=== PATIENT | female | born 1960 | race Caucasian/White ===

== ENCOUNTER 2022-06-01 11:58 | Emergency (ER) | payer SELFPAY ==
[~2022-06-01] VITALS: Ht 172.7 cm; Wt 63.5 kg
--- NOTE | 2022-06-01 11:59 | NUR ---
CAME IN FOR L HAND PAIN x 2 WEEKS. L HAND WITH CAST, GOOD CAP REFILL.
--- NOTE | 2022-06-01 13:31 | NUR ---
Patient discharged to home in stable condition. Written and verbal after care instructions given. Patient verbalizes understanding of instruction.
[2022-06-01 13:34] VITALS: BP 148/92
== END 2022-06-01 13:35 | disposition home or self-care (01) ==
LOC: ER 12:10
DX: S62.002A Unspecified fracture of navicular [scaphoid] bone of left wrist, initial encounter for closed fracture (principal); Z88.0 Allergy status to penicillin; Z88.2 Allergy status to sulfonamides; Z88.1 Allergy status to other antibiotic agents; V29.69XA Unspecified motorcycle rider injured in collision with other motor vehicles in traffic accident, initial encounter; Y93.89 Activity, other specified; Y92.89 Other specified places as the place of occurrence of the external cause; Y99.8 Other external cause status
CPT/HCPCS: 73110